=== PATIENT | male | born 1990 | race Caucasian/White ===

== ENCOUNTER 2022-11-17 09:48 | Emergency (ER) | payer MEDICAID ==
[~2022-11-17] VITALS: Ht 177.8 cm; Wt 77.3 kg
[2022-11-17 10:02] VITALS: TEMP 98.5
[2022-11-17] MEDS ORDERED: HYDROCODONE/ACETAMINOPHEN 5-325 MG TABLET PO ONE (10:45)
[2022-11-17] MEDS ORDERED: BACLOFEN 10 MG TABLET PO ONE (10:45)
[2022-11-17] MEDS ORDERED: KETOROLAC TROMETHAMINE 60 MG/2 ML VIAL IM ONE (10:45)
[2022-11-17 11:48] VITALS: BP 129/83; PULSE 62; RESP 16
[2022-11-17] MEDS ORDERED: HYDR-4072 PO (12:06)
[2022-11-17] MEDS ORDERED: IBUP-1554 PO (12:06)
[2022-11-17] MEDS ORDERED: METH-812 PO (12:06)
== END 2022-11-17 12:53 | disposition home or self-care (01) ==
LOC: EMS 09:50
DX: S39.012A Strain of muscle, fascia and tendon of lower back, initial encounter (principal); X58.XXXA Exposure to other specified factors, initial encounter; Y93.89 Activity, other specified; Y92.89 Other specified places as the place of occurrence of the external cause; Y99.8 Other external cause status
CPT/HCPCS: 99283; 72100; 96372; J1885

== ENCOUNTER 2023-07-25 11:07 | Emergency (ER) | payer MEDICAID ==
[~2023-07-25] VITALS: Ht 177.8 cm; Wt 75.0 kg
[~2023-07-25 11:07] MED LIST: HYDR-4072 PO; IBUP-1554 PO; METH-812 PO
[2023-07-25 11:11] VITALS: TEMP 98
[2023-07-25] MEDS ORDERED: CYCL-448 PO (15:16)
[2023-07-25] MEDS ORDERED: IBUP-1492 PO (15:16)
[2023-07-25] MEDS: LIDOCAINE 5% TRANSDERMAL PATCH TD ONE (15:24)
[2023-07-25] MEDS: CYCLOBENZAPRINE HCL 10 MG TABLET PO ONE (15:24)
[2023-07-25] MEDS: KETOROLAC TROMETHAMINE 60 MG/2 ML VIAL IM ONE (15:24)
[2023-07-25 15:31] VITALS: BP 129/62; PULSE 66; RESP 16
== END 2023-07-25 15:35 | disposition home or self-care (01) ==
LOC: EMS 11:07
DX: M54.42 Lumbago with sciatica, left side (principal)
CPT/HCPCS: 99283; 96372; J1885